=== PATIENT | female | born 1965 | race Hispanic/Latino ===

== ENCOUNTER 2019-01-18 09:44 | Emergency (ER) | payer SELFPAY ==
[~2019-01-18] VITALS: Ht 162.6 cm; Wt 70.3 kg
--- OUTSIDE RECORDS SUMMARY | 2019-01-18 09:48 | XMS REPORT ---
[facility] Address Unknown Phone Unavailable Care Team Providers Care Supervisor [place] Name Role Phone Unavailable Unavailable Payers Payer Name Policy Type Policy Number Effective Date Expiration Date Problems This patient has no known problems. Allergies, Adverse Reactions, Alerts Allergy Name Allergy Type Status Severity Reaction(s) Onset Date Inactive Date Treating Clinician Comments No Known Allergies DA Active U 2019-01-14 00:00:00 No Known Allergies DA Active U 2019-01-09 00:00:00 No Known Allergies DA Active U 2018-08-25 00:00:00 No Known Allergies DA Active U 2018-04-27 00:00:00 No Known Allergies DA Active U 2015-09-21 00:00:00 No Known Drug Intolerances DA Active U 2009-03-29 00:00:00 Medications This patient has no known medications. Encounters Start Date/Time End Date/Time Encounter Type Admission Type Attending Clinicians Care Facility Care Department Encounter ID 2019-02-04 00:00:00 2019-02-04 00:00:00 Outpatient [facility] [id number] 2019-01-13 15:53:15 2019-01-13 15:53:15 Emergency [facility] [id number] 2019-01-08 18:11:12 2019-01-08 18:11:12 Emergency [facility] [id number] 2019-01-08 16:52:48 2019-01-08 16:52:48 Emergency [facility] [id number] 2018-12-03 00:00:00 2018-12-03 00:00:00 Outpatient [facility] [id number] 2018-10-24 11:25:40 2018-10-24 11:25:40 Outpatient [facility] [id number] 2018-10-24 11:17:55 2018-10-24 11:17:55 Outpatient [facility] [id number] 2018-10-24 09:01:05 2018-10-24 09:01:05 Outpatient [facility] [id number] 2018-10-14 10:12:34 2018-10-14 10:12:34 Outpatient [facility] [id number] 2018-10-14 09:21:36 2018-10-14 09:21:36 Outpatient [facility] [id number] 2018-09-30 00:00:00 2018-09-30 00:00:00 Outpatient [facility] [id number] 2018-09-17 09:49:54 2018-09-17 09:49:54 Outpatient [facility] [id number] 2018-09-17 08:54:30 2018-09-17 08:54:30 Outpatient [facility] [id number] 2018-08-21 08:25:07 2018-08-21 08:25:07 Outpatient [facility] [id number] 2018-08-19 15:03:15 2018-08-19 15:03:15 Outpatient [facility] [id number] 2018-08-01 16:52:54 2018-08-01 16:52:54 Outpatient [facility] [id number] 2018-07-16 09:26:52 2018-07-16 09:26:52 Outpatient [facility] [id number] 2018-07-16 09:26:52 2018-07-16 09:26:52 Outpatient [facility] [id number] 2018-07-16 08:12:45 2018-07-16 08:12:45 Outpatient [facility] [id number] 2018-07-16 08:12:45 2018-07-16 08:12:45 Outpatient [facility] [id number] 2018-07-14 12:53:39 2018-07-14 12:53:39 Outpatient [facility] [id number] 2018-07-14 12:53:39 2018-07-14 12:53:39 Outpatient [facility] [id number] 2018-07-02 09:19:52 2018-07-02 09:19:52 Outpatient [facility] [id number] 2018-07-02 09:19:52 2018-07-02 09:19:52 Outpatient [facility] [id number] 2018-07-02 09:12:20 2018-07-02 09:12:20 Outpatient [facility] [id number] 2018-07-02 08:28:22 2018-07-02 08:28:22 Outpatient [facility] [id number] 2018-07-02 08:28:22 2018-07-02 08:28:22 Outpatient [facility] [id number] 2018-07-02 07:59:40 2018-07-02 07:59:40 Outpatient [facility] [id number] 2018-06-25 11:03:48 2018-06-25 11:03:48 Outpatient [facility] [id number] 2018-06-25 11:03:48 2018-06-25 11:03:48 Outpatient [facility] [id number] 2018-06-25 10:20:21 2018-06-25 10:20:21 Outpatient [facility] [id number] 2018-06-25 09:31:52 2018-06-25 09:31:52 Outpatient [facility] [id number] 2018-06-25 09:31:52 2018-06-25 09:31:52 Outpatient [facility] [id number] Results Test Description Test Time Test Comments Text Results Atomic Results Result Comments BASIC METABOLIC PANEL 2019-01-14 09:02:00 SODIUM (test code=NA) 132 mmol/L 136-145 POTASSIUM (test code=K) 3.4 mmol/L 3.5-5.1 CHLORIDE (test code=CL) 98.0 mmol/L 98-107 CARBON DIOXIDE (test code=CO2) 26.0 mmol/L 21-32 ANION GAP (test code=GAP) 11.4 10-20 GLUCOSE (test code=GLU) 246 mg/dL 74-106 BLOOD UREA NITROGEN (test code=BUN) 20 mg/dL 7-18 GLOMERULAR FILTRATION RATE (test code=GFR) > 60 mL/min >=60 Estimated GFR by using Modified MDRD formula.Chronic kidney disease is defined as either kidney damageor GFR <60 mL/min/1.73 m2 for >3 months. CREATININE (test code=CREAT) 0.70 mg/dL 0.55-1.02 Note change in reference range due to change in reagent. BUN/CREATININE RATIO (test code=BUN/CREA) 28.6 10-20 CALCIUM (test code=CA) 9.6 mg/dL 8.5-10.1 BASIC METABOLIC [id number] 08:56:00* Test Item Value Reference Range Comments SODIUM (test code=NA) 132 mmol/L 136-145 POTASSIUM (test code=K) 3.4 mmol/L 3.5-5.1 CHLORIDE (test code=CL) 98.0 mmol/L 98-107 CARBON DIOXIDE (test code=CO2) mmol/L 21-32 ANION GAP (test code=GAP) 10-20 GLUCOSE (test code=GLU) mg/dL 74-106 BLOOD UREA NITROGEN (test code=BUN) mg/dL 7-18 GLOMERULAR FILTRATION RATE (test code=GFR) mL/min >=60 CREATININE (test code=CREAT) mg/dL 0.55-1.02 BUN/CREATININE RATIO (test code=BUN/CREA) 10-20 CALCIUM (test code=CA) 9.6 mg/dL 8.5-10.1 CBC W/AUTO [id number] 08:42:00* Test Item Value Reference Range Comments WHITE BLOOD CELL (test code=WBC) K/mm3 4.5-12.5 RED BLOOD CELL (test code=RBC) mill/mm3 3.7-5.2 HEMOGLOBIN (test code=HGB) 12.6 gram/dL 11.5-15.5 HEMATOCRIT (test code=HCT) 37.6 % 36.0-46.0 MEAN CELL VOLUME (test code=MCV) fL 80-98 MEAN CELL HGB (test code=MCH) picogram 27.0-33.0 MEAN CELL HGB CONCETRATION (test code=MCHC) gram/dL 33.0-36.0 RED CELL DISTRIBUTION WIDTH (test code=RDW) % 11.6-16.2 RED CELL DISTRIBUTION WIDTH SD (test code=RDW-SD) fL 37.0-51.0 PLATELET COUNT (test code=PLT) K/mm3 150-450 MEAN PLATELET VOLUME (test code=MPV) fL 6.7-11.0 NEUTROPHIL % (test code=NT%) % 39.0-69.0 IMMATURE GRANULOCYTE % (test code=IG%) % 0.0-5.0 LYMPHOCYTE % (test code=LY%) % 25.0-55.0 MONOCYTE % (test code=MO%) % 0.0-10.0 EOSINOPHIL % (test code=EO%) % 0.0-5.0 BASOPHIL % (test code=BA%) % 0.0-1.0 NEUTROPHIL # (test code=NT#) K/mm3 1.8-7.7 LYMPHOCYTE # (test code=LY#) K/mm3 1.0-5.0 MONOCYTE # (test code=MO#) K/mm3 0-0.8 EOSINOPHIL # (test code=EO#) K/mm3 0.0-0.5 BASOPHIL # (test code=BA#) K/mm3 0.0-0.2 CBC W/AUTO [id number] 08:42:00* Test Item Value Reference Range Comments WHITE BLOOD CELL (test code=WBC) 8.0 K/mm3 4.5-12.5 RED BLOOD CELL (test code=RBC) 4.82 mill/mm3 3.7-5.2 HEMOGLOBIN (test code=HGB) 12.6 gram/dL 11.5-15.5 HEMATOCRIT (test code=HCT) 37.6 % 36.0-46.0 MEAN CELL VOLUME (test code=MCV) 78.0 fL 80-98 MEAN CELL HGB (test code=MCH) 26.1 picogram 27.0-33.0 MEAN CELL HGB CONCETRATION (test code=MCHC) 33.5 gram/dL 33.0-36.0 RED CELL DISTRIBUTION WIDTH (test code=RDW) 13.0 % 11.6-16.2 RED CELL DISTRIBUTION WIDTH SD (test code=RDW-SD) 36.8 fL 37.0-51.0 PLATELET COUNT (test code=PLT) 285 K/mm3 150-450 MEAN PLATELET VOLUME (test code=MPV) 9.1 fL 6.7-11.0 NEUTROPHIL % (test code=NT%) 79.8 % 39.0-69.0 IMMATURE GRANULOCYTE % (test code=IG%) 0.3 % 0.0-5.0 LYMPHOCYTE % (test code=LY%) 12.0 % 25.0-55.0 MONOCYTE % (test code=MO%) 6.6 % 0.0-10.0 EOSINOPHIL % (test code=EO%) 0.9 % 0.0-5.0 BASOPHIL % (test code=BA%) 0.4 % 0.0-1.0 NUCLEATED RBC % (test code=NRBC%) 0.0 % 0-0 NEUTROPHIL # (test code=NT#) 6.38 K/mm3 1.8-7.7 IMMATURE GRANULOCYTE # (test code=IG#) 0.02 x10 3/uL 0-0.03 LYMPHOCYTE # (test code=LY#) 0.96 K/mm3 1.0-5.0 MONOCYTE # (test code=MO#) 0.53 K/mm3 0-0.8 EOSINOPHIL # (test code=EO#) 0.07 K/mm3 0.0-0.5 BASOPHIL # (test code=BA#) 0.03 K/mm3 0.0-0.2 NUCLEATED RBC # (test code=NRBC#) 0.00 K/mm3 0.0-0.1 - XR CHEST 1 [id number] 08:18:00 FAX: Khris Graves MD [phone] [place]: B St: REG Name: [facility] : [birth year] Age/S: 53/F [address] [facility] Unit #: [id number] Loc: [place] [address] Phys: Khris Graves MD Acct: [id number] Dis Date: Status: REG ER PHONE #: [phone] Exam Date: 01/14/2019 0805 FAX #: [phone] Reason: concern for PNA EXAMS: CPT CODE: [id number] XR CHEST 1 V 02472 HISTORY: Pneumonia evaluation. COMPARISON: None available. No acute infiltrates, effusion or congestion is noted. The cardiac and mediastinal silhouette are within normal limits. IMPRESSION: No acute infiltrates, effusion or congestion. at 0818 Reported and signed by: Vitaly Sands M.D. CC: Khris rGaves MD Technologist: RT FORREST(R) Trnscrd Date/Time/By: 01/14/2019 (817) : By: [email or web address] Orig Print D/T: S: 01/14/2019 (820) PAGE 1 Signed Report [id number] 12:45:00* Test Item Value Reference Range Comments GLUBED (test code=GLUBED) 203 mg/dL 74-106 Performed by certified service unit operator oil well at [facility] [id number] 09:01:00* Test Item Value Reference Range Comments GLUBED (test code=GLUBED) 258 mg/dL 74-106 Performed by certified service unit operator oil well at [facility] BASIC METABOLIC [id number] 05:16:00* Test Item Value Reference Range Comments SODIUM (test code=NA) 136 mmol/L 136-145 POTASSIUM (test code=K) 3.4 mmol/L 3.5-5.1 CHLORIDE (test code=CL) 103.0 mmol/L 98-107 CARBON DIOXIDE (test code=CO2) 23.0 mmol/L 21-32 ANION GAP (test code=GAP) 13.4 10-20 GLUCOSE (test code=GLU) 237 mg/dL 74-106 BLOOD UREA NITROGEN (test code=BUN) 9 mg/dL 7-18 GLOMERULAR FILTRATION RATE (test code=GFR) > 60 mL/min >=60 Estimated GFR by using Modified MDRD formula.Chronic kidney disease is defined as either kidney damageor GFR <60 mL/min/1.73 m2 for >3 months. CREATININE (test code=CREAT) 0.60 mg/dL 0.55-1.02 Note change in reference range due to change in reagent. BUN/CREATININE RATIO (test code=BUN/CREA) 15.3 10-20 CALCIUM (test code=CA) 9.0 mg/dL 8.5-10.1 [id number] 04:59:00* Test Item Value Reference Range Comments GLYCOSYLATED HEMOGLOBIN (HA1C) (test code=GLYHGB) 10.5 % HbA1 4.8-6.0 ESTIMATED AVERAGE GLUCOSE (test code=EAG) 255 MG/DL CBC W/O [id number] 04:38:00* Test Item Value Reference Range Comments WHITE BLOOD CELL (test code=WBC) 6.5 K/mm3 4.5-12.5 RED BLOOD CELL (test code=RBC) 4.45 mill/mm3 3.7-5.2 HEMOGLOBIN (test code=HGB) 11.7 gram/dL 11.5-15.5 RESULT VERIFIED BY REPEAT ANALYSIS HEMATOCRIT (test code=HCT) 35.3 % 36.0-46.0 MEAN CELL VOLUME (test code=MCV) 79.3 fL 80-98 MEAN CELL HGB (test code=MCH) 26.3 picogram 27.0-33.0 MEAN CELL HGB CONCETRATION (test code=MCHC) 33.1 gram/dL 33.0-36.0 RED CELL DISTRIBUTION WIDTH (test code=RDW) 13.1 % 11.6-16.2 PLATELET COUNT (test code=PLT) 256 K/mm3 150-450 RESULT VERIFIED BY REPEAT ANALYSIS MEAN PLATELET VOLUME (test code=MPV) 9.4 fL 6.7-11.0 [id number] 21:26:00* Test Item Value Reference Range Comments GLUBED (test code=GLUBED) 237 mg/dL 74-106 Performed by certified service unit operator oil well at [facility] - CT ABD PELVIS W WO [id number] 12:21:00 Name: XAVIER MULLIGAN [facility] : 1965 Age/S: 53 / F [address] [facility] Unit #: [id number] Loc: [place] [address] Phys: Maye Hernandez MD Acct: [id number] Dis Date: Status: ADM IN PHONE #: [phone] Exam Date: 01/11/2019 1205 FAX #: [phone] Reason: llq pain EXAMS: CPT CODE: [id number] CT ABD PELVIS W WO CONT 18940 HISTORY: Left lower quadrant pain. COMPARISON: None available. CT abdomen and pelvis with and without IV contrast and with oral contrast: 100 mL of Isovue-370. Automated exposure control. CT ABDOMEN: The lung bases are clear. The liver is enhancing homogeneously. The liver measured 18.2 cm in length. Moderately distended gallbladder is without radiopaque stones. Portal vein and hepatic artery remain patent. Spleen enhances homogeneously. Stomach distends incompletely however it is normal in appearance. Pancreas enhances homogeneously. Adrenals are normal. Kidneys are free from hydroureteronephrosis with homogeneous enhancement. Bilateral excretion is noted. No calyceal stones on the precontrast sequence. No pathologic adenopa thy. Well-opacified abdominal and pelvic vasculature. Well- opacified abdominal and pelvic vasculature. No bowel obstruction o r colitis or diverticulitis or enteritis. Constipation. CT PELVIS: The appendix is normal. Pelvic bowel loops are unobstruct ed. Well-distended urinary bladder is unremarkable. The uterus is unremarkable. Ovaries are poorly visible but within normal limits. No free fluid or free air or abscess. No pathologic adenopathy. The subcutaneous tissues and the musculature are normal in appearance. No lytic or blastic lesions are noted within the bony skeleton. Mild nonsp ecific sclerosis of the SI joints. PAGE 1 Signed Report (CONTINUED) Name: XAVIER MULLIGAN [facility] : 1965 Age/S: 53 / F [address] [facility] Unit #: [id number] Loc: [place] [address] Phys: Maye Hernandez MD Acct: [id number] Dis Date: Status: ADM IN PHONE #: [phone] Exam Date: 01/11 1205 FAX #: [phone] Reason: llq pain EXAMS: CPT CODE: [id number] CT ABD PELVIS W WO CONT 74 178 <Continued> IMPRESSION: No acute intra-abdominal or intrapelvic pathology. at 1221 Reported and signed by: Vitaly Sands M.D. CC: Maye Hernandez MD Technologist:Angel Luis Haddad RT(R)(CT) CTDI: DLP: Trnscb Date/Time: 01/11/2019 (1221) [email or web address] Orig Print D/T: S: 01/11/2019 (1229) PAGE 2 Signed Report - CT ABD PELVIS W WO [id number] 12:21:00 Name: XAVIER MULLIGAN [facility] : 1965 Age/S: 53 / F [address] Unit #: [id number] Loc: [place] [address] Phys: Maye Hernandez MD Acct: [id number] Dis Date: Status: REG ER PHONE #: [phone] Exam Date: 01/11/2019 1205 FAX #: [phone] Reason: llq pain EXAMS: CPT CODE: [id number] CT ABD PELVIS W [place] CONT [address]308 HISTORY: Left lower quadrant pain. COMPARISON: None available. CT abdomen and pelvis with and without IV contrast and with oral contrast: 100 mL of Isovue-370. Automated exposure control. CT ABDOMEN: The lung bases are clear. The liver is enhancing homogeneously. The liver measured 18.2 cm in length. Moderately distended gallbladder is without radiopaque stones. Portal vein and hepatic artery remain patent. Spleen enhances homogeneously. Stomach distends incompletely however it is normal in appearance. Pancreas enhances homogeneously. Adrenals are normal. Kidneys are free from hydroureteronephrosis with homogeneous enhancement. Bilateral excretion is noted. No calyceal stones on the precontrast sequence. No pathologic adenopathy. Well-opacified abdominal and pelvic vasculature. Well-opacified abdominal and pelvic vasculature. No bowel obstruction or colitis or diverticulitis or enteritis. Constipation. CT PELVIS: The appendix is normal. Pelvic bowel loops are unobstructed. Well-distended urinary bladder is unremarkable. The uterus is unremarkable. Ovaries are poorly visible but within normal limits. No free fluid or free air or abscess. No pathologic adenopathy. The subcutaneous tissues and the musculature are normal in appearance. No lytic or blastic lesions are noted within the bony skeleton. Mild nonsp ecific sclerosis of the SI joints. PAGE 1 Signed Report (CONTINUED) Name: XAVIER MULLIGAN [facility] : 1965 Age/S: 53 / F [address] Unit #: [id number] Loc: [place] [address] Phys: Maye Hernandez MD Acct: [id number] Dis Date: Status: REG ER PHONE #: [phone] Exam Date: 01/11 1205 FAX #: [phone] Reason: llq pain EXAMS: CPT CODE: [id number] CT ABD PELVIS W WO CONT 74 178 <Continued> IMPRESSION: No acute intra-abdominal or intrapelvic pathology. at 1221 Reported and signed by: Vitaly Sands M.D. CC: Maye Hernandez MD Technologist:Angel Luis DURON(R)(CT) CTDI: DLP: Trnscb Date/Time: 01/11/2019 (1221) [email or web address] Orig Print D/T: S: 01/11/2019 (9249) PAGE 2 Signed Report PROCALCITONIN (PCT)2019-01-11 11:26:00* Test Item Value Reference Range Comments PROCALCITONIN (PCT) (test code=PROCAL) 0.05 ng/ml Concentration Interpretation (ng/mL) <0.51 Sepsis is not likely. Local bacterial infection is possible. (LOW RISK for progression to Sepsis) 0.51 - 2.00 Sepsis is possible, but other conditions are known to elevate PCT as well. (MODERATE RISK for progression to Sepsis) > 2.00 Sepsis is likely, unless other causes are known. (HIGH RISK for progression to Severe Sepsis or Septic Shock) 10.00 High likelihood of Severe Sepsis or Septic or higher Shock. *Increased PCT levels may not always be related to systemic bacterial infection.*Low PCT levels do not automatically exclude the presence of bacterial infection.*All results should be interpreted taking into account the patients history. BASIC METABOLIC [id number] 11:16:00* Test Item Value Reference Range Comments SODIUM (test code=NA) 137 mmol/L 136-145 POTASSIUM (test code=K) 4.0 mmol/L 3.5-5.1 CHLORIDE (test code=CL) 103.0 mmol/L 98-107 CARBON DIOXIDE (test code=CO2) 22.0 mmol/L 21-32 ANION GAP (test code=GAP) 16.0 10-20 GLUCOSE (test code=GLU) 338 mg/dL 74-106 BLOOD UREA NITROGEN (test code=BUN) 16 mg/dL 7-18 GLOMERULAR FILTRATION RATE (test code=GFR) > 60 mL/min >=60 Estimated GFR by using Modified MDRD formula.Chronic kidney disease is defined as either kidney damageor GFR <60 mL/min/1.73 m2 for >3 months. CREATININE (test code=CREAT) 0.90 mg/dL 0.55-1.02 Note change in reference range due to change in reagent. BUN/CREATININE RATIO (test code=BUN/CREA) 17.0 10-20 CALCIUM (test code=CA) 10.0 mg/dL 8.5-10.1 HEPATIC FUNCTION [id number] 11:16:00* Test Item Value Reference Range Comments TOTAL PROTEIN (test code=PROT) 9.2 gram/dL 6.4-8.2 ALBUMIN (test code=ALB) 4.6 g/dL 3.4-5.0 GLOBULIN (test code=GLOB) 4.6 gram/dL 2.7-4.2 ALBUMIN/GLOBULIN RATIO (test code=A/G) 1.0 0.75-1.50 BILIRUBIN TOTAL (test code=BILT) 0.60 mg/dL 0.0-1.0 BILIRUBIN DIRECT (test code=BILD) 0.13 mg/dL 0.0-0.20 SGOT/AST (test code=AST) 15 IUnit/L 15-37 SGPT/ALT (test code=ALT) 19 IUnit/L 12-78 ALKALINE PHOSPHATASE TOTAL (test code=ALKP) 135 IUnit/L 45-117 Note change in reference range due to change in reagent. [id number] 11:16:00* Test Item Value Reference Range Comments TROPONIN-I (test code=TROPI) <0.015 ng/mL 0-0.045 LACTIC [id number] 11:12:00* Test Item Value Reference Range Comments LACTIC ACID (test code=LACT) 1.2 mmol/L 0.4-1.9 BASIC METABOLIC [id number] 11:05:00* Test Item Value Reference Range Comments SODIUM (test code=NA) 137 mmol/L 136-145 POTASSIUM (test code=K) 4.0 mmol/L 3.5-5.1 CHLORIDE (test code=CL) 103.0 mmol/L 98-107 CARBON DIOXIDE (test code=CO2) mmol/L 21-32 ANION GAP (test code=GAP) 10-20 GLUCOSE (test code=GLU) mg/dL 74-106 BLOOD UREA NITROGEN (test code=BUN) mg/dL 7-18 GLOMERULAR FILTRATION RATE (test code=GFR) mL/min >=60 CREATININE (test code=CREAT) mg/dL 0.55-1.02 BUN/CREATININE RATIO (test code=BUN/CREA) 10-20 CALCIUM (test code=CA) mg/dL 8.5-10.1 HEPATIC FUNCTION [id number] 11:05:00* Test Item Value Reference Range Comments TOTAL PROTEIN (test code=PROT) gram/dL 6.4-8.2 ALBUMIN (test code=ALB) g/dL 3.4-5.0 GLOBULIN (test code=GLOB) gram/dL 2.7-4.2 ALBUMIN/GLOBULIN RATIO (test code=A/G) 0.75-1.50 BILIRUBIN TOTAL (test code=BILT) mg/dL 0.0-1.0 BILIRUBIN DIRECT (test code=BILD) mg/dL 0.0-0.20 SGOT/AST (test code=AST) IUnit/L 15-37 SGPT/ALT (test code=ALT) IUnit/L 12-78 ALKALINE PHOSPHATASE TOTAL (test code=ALKP) IUnit/L 45-117 [id number] 11:05:00* Test Item Value Reference Range Comments TROPONIN-I (test code=TROPI) ng/mL 0-0.045 URINALYSIS [id number] 11:00:00* Test Item Value Reference Range Comments UA COLOR (test code=COLU) Light-Yellow YELLOW UA APPEARANCE (test code=APPU) CLEAR CLEAR UA GLUCOSE DIPSTICK (test code=DGLUU) >1000 (4+) mg/dL NEGATIVE UA BILIRUBIN DIPSTICK (test code=BILU) NEGATIVE mg/dL NEGATIVE UA KETONE DIPSTICK (test code=KETU) 40 (2+) mg/dL NEGATIVE UA SPECIFIC GRAVITY (test code=SGU) 1.025 1.001-1.035 UA BLOOD DIPSTICK (test code=AMRGI) 0.06 mg/dL (1+) mg/dL NEGATIVE UA PH DIPSTICK (test code=NADIYA) 5.5 5.0-8.0 UA PROTEIN DIPSTICK (test code=PROU) 20 (Trace) mg/dL NEGATIVE UA UROBILINIOGEN DIPSTICK (test code=URO) Normal mg/dL NEGATIVE UA NITRITE DIPSTICK (test code=CONSUELO) NEGATIVE NEGATIVE UA LEUKOCYTE ESTERASE W REFLEX (test code=LEUUR) 75 Luis Antonio/uL (1+) Luis Antonio/uL NEGATIVE UA WBC (test code=WBCU) 21-50 per HPF 0-5 UA RBC (test code=RBCU) 21-50 #/HPF 0-5 UA EPITHELIAL CELLS (test code=EPIU) FEW per HPF FEW UA BACTERIA (test code=BACU) FEW #/HPF NONE UA MUCUS (test code=MUCU) FEW #/LPF FEW UA YEAST (test code=YEASTU) FEW #/HPF NONE Urine Source? Clean CatchCBC W/AUTO [id number] 10:50:00* Test Item Value Reference Range Comments WHITE BLOOD CELL (test code=WBC) 7.8 K/mm3 4.5-12.5 RED BLOOD CELL (test code=RBC) 5.21 mill/mm3 3.7-5.2 HEMOGLOBIN (test code=HGB) 13.8 gram/dL 11.5-15.5 HEMATOCRIT (test code=HCT) 42.4 % 36.0-46.0 MEAN CELL VOLUME (test code=MCV) 81.4 fL 80-98 MEAN CELL HGB (test code=MCH) 26.5 picogram 27.0-33.0 MEAN CELL HGB CONCETRATION (test code=MCHC) 32.5 gram/dL 33.0-36.0 RED CELL DISTRIBUTION WIDTH (test code=RDW) 13.0 % 11.6-16.2 RED CELL DISTRIBUTION WIDTH SD (test code=RDW-SD) 38.2 fL 37.0-51.0 PLATELET COUNT (test code=PLT) 318 K/mm3 150-450 MEAN PLATELET VOLUME (test code=MPV) 9.3 fL 6.7-11.0 NEUTROPHIL % (test code=NT%) 87.0 % 39.0-69.0 IMMATURE GRANULOCYTE % (test code=IG%) 0.4 % 0.0-5.0 LYMPHOCYTE % (test code=LY%) 6.7 % 25.0-55.0 MONOCYTE % (test code=MO%) 4.2 % 0.0-10.0 EOSINOPHIL % (test code=EO%) 1.2 % 0.0-5.0 BASOPHIL % (test code=BA%) 0.5 % 0.0-1.0 NUCLEATED RBC % (test code=NRBC%) 0.0 % 0-0 NEUTROPHIL # (test code=NT#) 6.79 K/mm3 1.8-7.7 IMMATURE GRANULOCYTE # (test code=IG#) 0.03 x10 3/uL 0-0.03 LYMPHOCYTE # (test code=LY#) 0.52 K/mm3 1.0-5.0 MONOCYTE # (test code=MO#) 0.33 K/mm3 0-0.8 EOSINOPHIL # (test code=EO#) 0.09 K/mm3 0.0-0.5 BASOPHIL # (test code=BA#) 0.04 K/mm3 0.0-0.2 NUCLEATED RBC # (test code=NRBC#) 0.00 K/mm3 0.0-0.1 MANUAL DIFF REQUIRED (test code=MDIFF) NO CBC W/AUTO [id number] 10:48:00* Test Item Value Reference Range Comments WHITE BLOOD CELL (test code=WBC) K/mm3 4.5-12.5 RED BLOOD CELL (test code=RBC) mill/mm3 3.7-5.2 HEMOGLOBIN (test code=HGB) 13.8 gram/dL 11.5-15.5 HEMATOCRIT (test code=HCT) 42.4 % 36.0-46.0 MEAN CELL VOLUME (test code=MCV) fL 80-98 MEAN CELL HGB (test code=MCH) picogram 27.0-33.0 MEAN CELL HGB CONCETRATION (test code=MCHC) gram/dL 33.0-36.0 RED CELL DISTRIBUTION WIDTH (test code=RDW) % 11.6-16.2 RED CELL DISTRIBUTION WIDTH SD (test code=RDW-SD) fL 37.0-51.0 PLATELET COUNT (test code=PLT) K/mm3 150-450 MEAN PLATELET VOLUME (test code=MPV) fL 6.7-11.0 NEUTROPHIL % (test code=NT%) % 39.0-69.0 IMMATURE GRANULOCYTE % (test code=IG%) % 0.0-5.0 LYMPHOCYTE % (test code=LY%) % 25.0-55.0 MONOCYTE % (test code=MO%) % 0.0-10.0 EOSINOPHIL % (test code=EO%) % 0.0-5.0 BASOPHIL % (test code=BA%) % 0.0-1.0 NEUTROPHIL # (test code=NT#) K/mm3 1.8-7.7 LYMPHOCYTE # (test code=LY#) K/mm3 1.0-5.0 MONOCYTE # (test code=MO#) K/mm3 0-0.8 EOSINOPHIL # (test code=EO#) K/mm3 0.0-0.5 BASOPHIL # (test code=BA#) K/mm3 0.0-0.2 - XR CHEST 1 [id number] 10:45:00 FAX: Maye Yoo [phone] [place]: St: ADM Name: [facility] : [birth year] Age/S: 53/F [address] [facility] Unit #: [id number] Loc: [id number].30[address] [place] [address] Phys: Maye Hernandez MD Acct: [id number] Dis Date: Status: ADM IN PHONE #: [phone] Exam Date: 01/11/2019 1035 FAX #: [phone] Reason: CODE SEPSIS EXAMS: CPT CODE: [id number] XR CHEST 1 V 19902 HISTORY: Sepsis. COM PARISON: January 25, 2016. No acute infiltrates, effusion or congesti on is noted. The cardiac and mediastinal silhouette are within nor mal limits. IMPRESSION: No acute infiltrates , effusion or congestion. at 1045 Reported and signed by: Vitaly uribe M.D. CC: Maye Hernandez MD Technologist: DOM MAZA RT (R) Trnscrd Date/Time/By: 01/11/2019 (6000) : By: [email or web address] Orig Print D/T: S: 01/11/2019 (9499) PAGE 1 Signed Report - XR CHEST 1 [id number] 10:45:00 FAX: Maye oYo [phone] [place]: St: REG Name: XAVIER MCCLAIN [facility] : [birth year] Age/S: 53/F [address] [facility] Unit #: [id number] Loc: [place] [address] Phys: Maye Hernandez MD Acct: [id number] Dis Date: Status: REG ER PHONE #: [phone] Exam Date: 01/11/2019 1035 FAX #: [phone] Reason: CODE SEPSIS EXAMS: CPT CODE: [id number] XR CHEST 1 V 85749 HISTORY: Sepsis. COM PARISON: January 25, 2016. No acute infiltrates, effusion or congesti on is noted. The cardiac and mediastinal silhouette are within nor mal limits. IMPRESSION: No acute infiltrates , effusion or congestion. at 1045 Reported and signed by: Vitaly uribe M.D. CC: Maye Hernandez MD Technologist: DOM DURON (R) Trnscrd Date/Time/By: 01/11/2019 (1045) : By: [email or web address] Orig Print D/T: S: 01/11/2019 (1046) PAGE 1 Signed Report POC LACTIC [id number] 10:30:00* Test Item Value Reference Range Comments POC LACTIC ACID (test code=POCLAC) 1.28 MMOL/L 0.4-2.2 [id number] 02:19:00* Test Item Value Reference Range Comments GLUBED (test code=GLUBED) 281 mg/dL 74-106 Performed by certified service unit operator oil well at [facility] URINALYSIS [id number] 00:33:00* Test Item Value Reference Range Comments UA COLOR (test code=COLU) Light-Yellow YELLOW UA APPEARANCE (test code=APPU) CLEAR CLEAR UA GLUCOSE DIPSTICK (test code=DGLUU) >1000 (4+) mg/dL NEGATIVE UA BILIRUBIN DIPSTICK (test code=BILU) NEGATIVE mg/dL NEGATIVE UA KETONE DIPSTICK (test code=KETU) 40 (2+) mg/dL NEGATIVE UA SPECIFIC GRAVITY (test code=SGU) 1.025 1.001-1.035 UA BLOOD DIPSTICK (test code=MARGI) 0.06 mg/dL (1+) mg/dL NEGATIVE UA PH DIPSTICK (test code=NADIYA) 5.5 5.0-8.0 UA PROTEIN DIPSTICK (test code=PROU) NEGATIVE mg/dL NEGATIVE UA UROBILINIOGEN DIPSTICK (test code=URO) Normal mg/dL NEGATIVE UA NITRITE DIPSTICK (test code=CONSUELO) NEGATIVE NEGATIVE UA LEUKOCYTE ESTERASE W REFLEX (test code=LEUUR) 250 Luis Antonio/uL (2+) Luis Antonio/uL NEGATIVE UA WBC (test code=WBCU) 101-150 per HPF 0-5 UA RBC (test code=RBCU) 11-20 #/HPF 0-5 UA EPITHELIAL CELLS (test code=EPIU) FEW per HPF FEW UA BACTERIA (test code=BACU) FEW #/HPF NONE UA MUCUS (test code=MUCU) FEW #/LPF FEW Urine Source? Clean Catch- US RETRO [id number] 00:27:00 Name: CHARLINE MYERS [facility] : 1965 Age/S: 53 / F [address] Unit #: [id number] Loc: [place] [address] Phys: Nery Graves MD Acct: [id number] Di s Date: Status: REG ER PHONE #: [phone] Exam Date: 01/09/2019 0010 FAX #: [phone] Reason: L flank pain EXAMS: CPT CODE: [id number] US RETRO LTD 75084 ULTRASOUND- RENAL AND RENETTA DDER Dictation Location: N13 CLINICAL HISTORY: L fla nk pain and UTI Technique: Real-time duplex grayscale and color Doppler imaging was obtained. FINDINGS: The right kidney measures 9.49 x 5.2 x 5.64 cm. The left kidney measures 9.9 x 5.64 x 4.08 cm.. Both kidneys are normal in size and echogenicity wi thout masses, calculi, hydronephrosis. Renal cortices are of normal thick ness. The bladder is unremarkable in appearance without disten tion, wall thickening, masses or diverticula. IMPRESSION: 1. Normal exam. 2. Ultrasound has limited sensitiv ity for detection of pyelonephritis. Consider CT abdomen with IV contra st. 19 at 0027 Reported and signed by: Savanah Aguirre M.D. CC: Khris Graves MD Technolog ist: Charmaine Ying RT(S), RDMS Trnscb Date/Time: (0027) t.[email or web address] Orig Print D/T: S: 01/10/2019 ( 0031) Probe: PAGE 1 Signed Repo rt BASIC METABOLIC [id number] 00:18:00* Test Item Value Reference Range Comments SODIUM (test code=NA) 135 mmol/L 136-145 POTASSIUM (test code=K) 3.8 mmol/L 3.5-5.1 CHLORIDE (test code=CL) 103.0 mmol/L 98-107 CARBON DIOXIDE (test code=CO2) 24.0 mmol/L 21-32 ANION GAP (test code=GAP) 11.8 10-20 GLUCOSE (test code=GLU) 364 mg/dL 74-106 BLOOD UREA NITROGEN (test code=BUN) 16 mg/dL 7-18 GLOMERULAR FILTRATION RATE (test code=GFR) > 60 mL/min >=60 Estimated GFR by using Modified MDRD formula.Chronic kidney disease is defined as either kidney damageor GFR <60 mL/min/1.73 m2 for >3 months. CREATININE (test code=CREAT) 0.90 mg/dL 0.55-1.02 Note change in reference range due to change in reagent. BUN/CREATININE RATIO (test code=BUN/CREA) 18.7 10-20 CALCIUM (test code=CA) 9.3 mg/dL 8.5-10.1 HEPATIC FUNCTION [id number] 00:18:00* Test Item Value Reference Range Comments TOTAL PROTEIN (test code=PROT) 8.1 gram/dL 6.4-8.2 ALBUMIN (test code=ALB) 4.2 g/dL 3.4-5.0 GLOBULIN (test code=GLOB) 3.9 gram/dL 2.7-4.2 ALBUMIN/GLOBULIN RATIO (test code=A/G) 1.1 0.75-1.50 BILIRUBIN TOTAL (test code=BILT) 0.40 mg/dL 0.0-1.0 BILIRUBIN DIRECT (test code=BILD) 0.12 mg/dL 0.0-0.20 SGOT/AST (test code=AST) 10 IUnit/L 15-37 SGPT/ALT (test code=ALT) 19 IUnit/L 12-78 ALKALINE PHOSPHATASE TOTAL (test code=ALKP) 120 IUnit/L 45-117 Note change in reference range due to change in reagent. [id number] 00:18:00* Test Item Value Reference Range Comments LIPASE (test code=LIP) 118 U/L 73.0-393.0 BASIC METABOLIC [id number] 00:16:00* Test Item Value Reference Range Comments SODIUM (test code=NA) 135 mmol/L 136-145 POTASSIUM (test code=K) 3.8 mmol/L 3.5-5.1 CHLORIDE (test code=CL) 103.0 mmol/L 98-107 CARBON DIOXIDE (test code=CO2) mmol/L 21-32 ANION GAP (test code=GAP) 10-20 GLUCOSE (test code=GLU) mg/dL 74-106 BLOOD UREA NITROGEN (test code=BUN) mg/dL 7-18 GLOMERULAR FILTRATION RATE (test code=GFR) mL/min >=60 CREATININE (test code=CREAT) mg/dL 0.55-1.02 BUN/CREATININE RATIO (test code=BUN/CREA) 10-20 CALCIUM (test code=CA) mg/dL 8.5-10.1 HEPATIC FUNCTION [id number] 00:16:00* Test Item Value Reference Range Comments TOTAL PROTEIN (test code=PROT) gram/dL 6.4-8.2 ALBUMIN (test code=ALB) g/dL 3.4-5.0 GLOBULIN (test code=GLOB) gram/dL 2.7-4.2 ALBUMIN/GLOBULIN RATIO (test code=A/G) 0.75-1.50 BILIRUBIN TOTAL (test code=BILT) mg/dL 0.0-1.0 BILIRUBIN DIRECT (test code=BILD) mg/dL 0.0-0.20 SGOT/AST (test code=AST) IUnit/L 15-37 SGPT/ALT (test code=ALT) IUnit/L 12-78 ALKALINE PHOSPHATASE TOTAL (test code=ALKP) IUnit/L 45-117 [id number] 00:16:00* Test Item Value Reference Range Comments LIPASE (test code=LIP) U/L 73.0-393.0 CBC W/O [id number] 23:51:00* Test Item Value Reference Range Comments WHITE BLOOD CELL (test code=WBC) 7.9 K/mm3 4.5-12.5 RED BLOOD CELL (test code=RBC) 4.49 mill/mm3 3.7-5.2 HEMOGLOBIN (test code=HGB) 11.9 gram/dL 11.5-15.5 HEMATOCRIT (test code=HCT) 36.8 % 36.0-46.0 MEAN CELL VOLUME (test code=MCV) 82.0 fL 80-98 MEAN CELL HGB (test code=MCH) 26.5 picogram 27.0-33.0 MEAN CELL HGB CONCETRATION (test code=MCHC) 32.3 gram/dL 33.0-36.0 RED CELL DISTRIBUTION WIDTH (test code=RDW) 13.0 % 11.6-16.2 PLATELET COUNT (test code=PLT) 297 K/mm3 150-450 MEAN PLATELET VOLUME (test code=MPV) 9.2 fL 6.7-11.0 CBC W/O [id number] 23:50:00* Test Item Value Reference Range Comments WHITE BLOOD CELL (test code=WBC) K/mm3 4.5-12.5 RED BLOOD CELL (test code=RBC) mill/mm3 3.7-5.2 HEMOGLOBIN (test code=HGB) 11.9 gram/dL 11.5-15.5 HEMATOCRIT (test code=HCT) 36.8 % 36.0-46.0 MEAN CELL VOLUME (test code=MCV) fL 80-98 MEAN CELL HGB (test code=MCH) picogram 27.0-33.0 MEAN CELL HGB CONCETRATION (test code=MCHC) gram/dL 33.0-36.0 RED CELL DISTRIBUTION WIDTH (test code=RDW) % 11.6-16.2 PLATELET COUNT (test code=PLT) K/mm3 150-450 MEAN PLATELET VOLUME (test code=MPV) fL 6.7-11.0 - MRI BRAIN W/O [id number] 21:55:00 FAX: Erwin Middleton MD [phone] [place]: B St: DIS Name: XAVIER MCCLAIN [facility] : [birth year] Age/S: 52/F [address] Unit #: [id number] Loc: [place] [address] Phys: Erwin Middleton MD Acct: [id number] Dis Date: Status: DIS IN PHONE #: [phone] Exam Date: 04/28/2018 171 FAX #: [phone] Reason: L numbness, abnormal CT EXAMS: CPT CODE: [id number] MRI BRAIN W/O CONTRAST 95322 EXAM: MRI scan of the brain without contrast; INFORMATION: Left-sided numbness; suspicion of pontine lesion on CT; TECHNIQUE AND FINDINGS: Multiplanar, multiseq uence scans of the brain were obtained including diffusion-weighted sequen peter; The diffusion-weighted scans show an area of restricted diffusion positioned centrally in the calvin and best demonstrated on the sagittal images. The remainder of the brain shows no additional lesions with restr icted diffusion. Unremarkable nicolas/white matter differentiation in b oth cerebral hemispheres. No evidence of intra or extra axial hemorr ladi on the gradient echo study. Expected flow-voids are seen within vascular structures. No mass lesions or midline shift. Ventricles a re symmetric and of normal diameter. Sulci and basilar cisterns are intac t. Opacification of the left maxillary sinus. IMPRESSION: 1. FINDINGS are consistent with a small ischemic lesion in the calvin. 2. No evidence of intracranial hemorrhage. 3. No evidence of mass lesions. 4. Left maxillary sinusitis. Electronic ally Signed by Oumar Leggett on 04/28/2018 at 2155 Reported and signed by: Vidal wiseman M.D. CC: Erwin Middleton MD echnologist: TAMMI LARSONRT - MRI Trnscrd Date /Time/By: 04/28/2018 (2154) : By: [email or web address].GRW Orig Print D/T: S: 018 (2157) PAGE 1 Signed Report - CT HEAD/BRAIN W/O [id number] 14:01:00 Name: XAVIER MULLIGAN [facility] : 1965 Age/S: 52 / F [address] [facility] Unit #: [id number] Loc: [place] [address] Phys: Viktor Middleton MD Acct: [id number] Di s Date: Status: DIS IN PHONE #: Exam Date: 04/27/2018 1343 FAX #: [phone] Reason: numbness EXAMS: CPT CODE: [id number] CT HEAD/BRAIN W/O CONT 62336 HISTORY: numbness TECHNIQUE: Noncontrast 2.[address] of the head. Examination ac quired within 24 hours of arrival. Automated exposure control for dose red uction; DLP: 724 mGy-cm. COMPARISON: 03/29/09 FINDIN GS: Indistinct 0.8 cm hypodensity within the left aspect of the po ns, possible lacunar infarct of indeterminate age versus beam hardening artifact. No acute hemorrhage. No intracranial mass, mass effect, or m idline shift. No hydrocephalus. No extra-axial fluid collection. Opacified left frontal, anterior ethmoid, and maxillary sinuses. Decreased size of 2.5 cm radiolucent lesion of the right maxillary alveolus associa aniket with a tooth, suggesting dentigerous cyst. Mastoid air cells and middl e ear cavities are clear. Orbital contents are unremarkable. Calvarium and skull base are intact. IMPRESSION: In distinct 0.8 cm hypodensity within the left aspect of the calvin, possible lacunar infarct of indeterminate age versus beam hardening artifact. Co rrelate with MRI. Electronically Signed by Germania Deal D.O. on 018 at 1401 Reported and signed by: Germania Deal D.O. CC: Erwin Middleton MD Technologist:Lorie Matson RT(R) CTDI: DLP: Trnscb Date/Time: 2017 (1401) [email or web address] Orig Print D/T: S: 04/27/2018 (9934 ) PAGE 1 Signed Report - XR RIBS UNI W/CXR 3+V [id number] 00:41:00 FAX: Samm Olmos NP [place]: AM St: UNK Name: XAVIER MCCLAIN [facility] : [birth year] Age/S: 50/F [address] [facility] Unit #: [id number] Loc: [place], [place] [address] Phys: Samm Olmos TERRITORY SALES MANAGER MEDICAL Acct: [id number] Dis Date: Status: UNK PHONE #: [phone] Exam Date: 01/25/2016 0023 FAX #: [phone] Reason: posterior chest wall contusion post fall EXAMS: CPT CODE: [id number] XR RIBS UNI W/CXR 3+[place] [address] EXAM: - XR RIBS UNI W/CXR 3+V LT HISTORY: posterior chest wall contusion post fall CO MPARISON: None FINDINGS: The lungs are clear. No p leural effusion or pneumothorax. The cardiac silhouette is within normal l imits. No displaced rib fractures. No aggressive osseous lesions. No acute osseous abnormalities. IMPRESSION: No acute cardiopulmo nary disease. No rib abnormalities. at 0041 Reported and sign ed by: Allan Kemp MD CC: Samm Olmos TERRITORY SALES MANAGER MEDICAL Technologist: RT SUNITA Trnscrd Date/Time/By: 01/25/2016 (0041) : By: [email or web address] [facility] Print D/T: S: 01/25/2016 (0044) PAGE 1 Signed Report - CT HEAD/BRAIN W/O CONT 2009-03-29 10:44:00 Name: XAVIER MULLIGAN [facility] : 1965 Age/S: 43 / F [address] [facility] Unit #: [id number] Loc: [place] [address] Phys: Hakan Prabhakar MD Acct: [id number] Dis Date: Status: K PHONE #: [phone] Exam Date: 03/29/2009 1030 FAX #: [phone] Reason: COMPLAINT OF NOT FEELING WELL EXAMS: CPT CODE: [id number] CT HEAD/BRAIN W/O CONT 20075 CT HEAD CLINICAL HISTORY: HEADACHE, NOT FEELING GOOD TECHNIQUE: Axial CT of the head with 2.5 mm and 5.0 mm slices through the infratentorial and supratentorial brain, respectively, without IV contrast. COMPARISON: None. FINDINGS: No acute hemorrhage. No parenchymal edema, mass effect, or midline shift. Nicolas-white matter differentiation is preserved. No intracranial mass or fluid collection. Punctate cortical calcification of the left frontal lobe, likely healed neurocysticercosis or other inflammatory/granulomatous process. No hydrocephalus. Complete opacification of the left frontal sinus and frontoethmoid recess. Partial opacification of the anterior left ethmoid air cells. Near-complete opacification of the left maxillary sinus. Expansile fluid-filled lesion of the right maxillary sinus, mucocele of a septated maxillary sinus compartment versus cyst of odontogenic origin. Other visualized paranasal sinuses are clear. Mastoid air cells are clear. Orbital contents are unremarkable. Regional osseous structures are unremarkable. IMPRESSION: 1. No acute intracranial process. 2. Sinus disease of the left frontal, anterior ethmoid, and maxillary sinuses. 3. Expansile fluid- filled lesion of the right maxillary sinus, mucocele of a septated maxillary sinus compartment versus cyst of odontogenic origin. at 1051 Reported and signed by: Germania Deal D.O. PAGE 1 Signed Report (CONTINUED) Name: XAVIER MULLIGAN [facility] : 1965 Age/S: 43 / F [address] [facility] Unit #: [id number] Loc: [place] [address] Phys: Hakan Prabhakar MD Acct: [id number] Dis Date: Status: UNK PHONE #: [phone] Exam Date: 03/29/2009 1030 FAX #: [phone] Reason: COMPLAINT OF NOT FEELING WELL EXAMS: CPT CODE: [id number] CT HEAD/BRAIN W/O CONT 28382 <Continued> CC: Hakan Prabhakar MD Technologist:TRAVIS LOPEZ RT(R)(CT) CTDI: DLP: Trnscb Date/Time: 03/29/2009 (1051) [email or web address] Orig Print D/T: S: 03/29/2009 (6392) PAGE 2 Signed Report - XR CHEST 2 [id number] 12:07:00 FAX: Uriah Melendez [phone] [place]: B St: UNK Name: XAVIER MCCLAIN [facility] : [birth year] Age/S: 39/F [address] Unit #: [id number] Loc: [place] [address] Phys: Uriah Marsh MD Acct: [id number] Dis Date: Status: UNK PHONE #: [phone] Exam Date: 05/14/2005 224 FAX #: [phone] Reason: OR DAY: 1 EXAMS: CPT CODE: [id number] XR CHEST 2 V 41930 DICTATED: 05/15/05, 1207 C LINICAL HISTORY: HIGH BLOOD SUGAR. CHEST TWO VIEWS 05/14/05: Lungs and pleural spaces are clear. Cardiomediastinal silhouette is within normal limits. No comparison exams are submitted. QC 1 WC/saf/#[id number] at 1500 Reported and signed by: Christo Solorzano M.D. CC: Uriah Marsh MD Technologist: RAMON CORCORAN Trnscrd Date/Time/By: 05/15/2005 (1409) : By: OdiliaSF Orig Print D/T: (0831) S: 05/16/2005 (1500) PAGE 1 Signed Report - CT CHEST W/[id number] 10:06:00 Name: XAVIER MULLIGAN [facility] : 1965 Age/S: 39 / F [address] Unit #: [id number] Loc: [place] [address] Phys: Miller Diaz MD Acct: [id number] Dis Date: Status: UNK PHONE #: [phone] Exam Date: 05/15/2005 08 FAX #: [phone] Reason: UN AND CREATININE LAST 48 HRS ? Y EXAMS: CPT CODE: [id number] CT CHEST W/CONTRAST 69184 DICTATED: 05/15/05, 10:06 HISTORY: HIGH BLOOD SUGAR CAT SCAN OF THE CHEST WITH IV CONTRAST, 05/15/05 TECHNIQUE: Multiple contiguous axial sections were obtained from the lung apices to the level of the upper abdomen with IV contrast, obtained at 1 mm intervals with 3 and 5 mm thick slices. FINDINGS: Evaluation of the pulmonary arteries demonstrating these to be well opacified and unremarkable, without pulmonary embolism in the proximal pulmonary artery branches. The distal branches are not well seen, due to poor resolution. The aorta is unremarkable. Cardiac silhouette is within normal limits. Evaluation of the lung parenchyma demonstrating bibasilar subsegmental atelectasis. No discrete lung mass or nodule is noted. No effusion or congestion is noted. No endobronchial lesions are present. No pathologic hilar, mediastinal, or axillary adenopathy is noted. The high resolution thin cuts are unremarkable. No bronchiectasis, honeycombing, or lung fibrosis is noted. IMPRESSION: 1. BIBASILAR SUBSEGMENTAL ATELECTASIS 2. NO PULMONARY EMBOLISM IN THE PROXIMAL PULMONARY ARTERY BRANCHES 3. NO PATHOLOGIC ADENOPATHY. 4. NO EFFUSION, CONGESTION, OR INFILTRATES /[facility]/d at 1538 Reported and signed by: Vitaly Sands M.D. PAGE 1 Signed Report (CONTINUED) Name: XAVIER MULLIGAN [facility] : 1965 Age/S: 39 / F [address] [facility] Unit #: [id number] Loc: [place] [address] Phys: Miller Diaz MD Acct: [id number] Dis Date: Status: UNK PHONE #: [phone] Exam Date: 05/15/2005 0855 FAX #: [phone] Reason: UN AND CREATININE LAST 48 HRS ? Y EXAMS: CPT CODE: [id number] CT CHEST W/CONTRAST 33387 <Continued> CC: Miller Diaz MD Technologist:RANJIT GONZÁLES(R)(CT); W CTDI: DLP: Trnscb Date/Time: 05/15/2005 (1147) [email or web address] Orig Print D/T: (1237) S: PAGE 2 Signed Report
== END 2019-01-18 10:34 | disposition home or self-care (01) ==
LOC: ER 09:44
DX: B02.9 Zoster without complications (principal)
CPT/HCPCS: 99282